=== PATIENT | female | born 1995 | race Caucasian/White ===

== ENCOUNTER 2022-08-20 16:57 | Emergency (ER) | payer MEDICAID ==
[~2022-08-20] VITALS: Ht 154.9 cm; Wt 58.5 kg
[2022-08-20 16:57] VITALS: BP_SYST 113
--- NOTE | 2022-08-20 16:57 | NUR ---
Patient triaged and placed in waiting room. VSS and patient appears in no acute distress at this time. Accompanied by SELF, awaiting available bed, and MD notified of need for MSE.
--- NOTE | 2022-08-20 17:09 | NUR ---
PT STATES THAT SHE IS APPROX 4 WEEKS , , AND WHILE WORKING STARTED HAVING SOB. STATES THROAT FEELS TIGHT, DRY MOUTH. PT DENIES HAVING ANY ANXIETY.
--- NOTE | 2022-08-20 18:10 | NUR ---
BROUGHT BACK TO BED #7 AND REPORT GIVEN TO NIKOLAS
--- NOTE | 2022-08-20 18:11 | NUR ---
Patient arrived to bed 7 for c/o feeling dehydrated, (again), and fast heart rate. Patient said this is her fifth and is having heavy breathing. Patient explained that when she lays down she "feels suffocated." Patient said that her mouth is so heavy. Patient 5 pregnancies, 4 living children. Patient had c-sections on all her pregnancies. No complications. Patient denies irregular bleeding. Patient LMP was June 11, 2022. Patient had high blood pressure during her last . Alert and oriented x4. Respiration even and unlabored. No shortness of breath. Able to walk and move around. Will continue to monitor.
--- NOTE | 2022-08-20 19:33 | NUR ---
Report given to overnight stocker RN for continuity of care. Patient stable condition. No distress. Still waiting on urine sample. Endorsed to overnight stocker RN.
[2022-08-20 19:36] LABS: BASOPHILS # (AUTO) 0.3 K/uL (0.0-0.2); EOSINOPHILS # (AUTO) 0.1 K/uL (0.0-0.4); HEMOGLOBIN 11.2 g/dL (12.0-16.0); LYMPHOCYTES # (AUTO) 0.8 K/uL (1.0-5.5); LYMPHOCYTES % (AUTO) 8.8 % (20.5-51.5); MEAN CORPUSCULAR HEMOGLOBIN 28 pg (27-31); MEAN CORPUSCULAR HGB CONC 33 % (32-36); MEAN CORPUSCULAR VOLUME 86 fL (79.0-98.0); MONOCYTES # (AUTO) 0.5 K/uL (0.0-1.0); MONOCYTES % (AUTO) 5.1 % (1.7-9.3); NEUTROPHILS # (AUTO) 7.7 K/uL (1.8-7.7); NEUTROPHILS % (AUTO) 82.1 % (40.0-70.0); PLATELET COUNT (AUTO) 227 K/uL (130-430); RED BLOOD CELL COUNT(AUTO) 3.97 MIL/uL (4.2-6.2); RED CELL DISTRIBUTION WIDTH 15.7 % (9.0-15.0); WHITE BLOOD COUNT (AUTO) 9.4 K/uL (4.8-10.8)
--- NOTE | 2022-08-20 19:39 | NUR ---
PT IS AA&OX4. AFEBRILE. NAD, DENIES PAIN. SATURATING 100% ON RA. AMBULATORY W/ STEADY GAIT. SAFE & HAZARD FREE ENVIRONMENT PROVIDED. WILL CON'T TO MONITOR.
[2022-08-20 19:57] LABS: ANION GAP 8 (5-15); CALCIUM 8.3 mg/dL (8.4-11.0); CHLORIDE 105 mmol/L (98-107); CREATININE 0.74 mg/dL (0.55-1.30); GLUCOSE 99 mg/dL (70-99); POTASSIUM 3.8 mmol/L (3.5-5.1); UREA NITROGEN, BLOOD 9 mg/dL (8-21)
[2022-08-20 20:23] LABS: ALANINE AMINOTRANSFERASE 35 U/L (12-78); ALBUMIN 3.3 g/dL (3.4-4.8); ASPARTATE AMINOTRANSFERASE 18 U/L (10-37); TOTAL BILIRUBIN 0.3 mg/dL (0.0-1.0)
[2022-08-20 20:24] LABS: GFR AFRICAN AMERICAN 119 mL/min (>90); HCG,QUANTITATIVE 7835 mIU/ML (0-6)
[2022-08-20 20:38] VITALS: BP_SYST 122
--- NOTE | 2022-08-20 20:39 | NUR ---
Patient given written and verbal discharge instructions and verbalizes understanding. ER MD discussed with patient the results and treatment provided. Patient in stable condition. ID arm band removed. PT IS AMBULATORY W/ STEADY GAIT SATURATING 100% ON RA. Patient educated on pain management and to follow up with PMD. Pain Scale 0/10. Opportunity for questions provided and answered. Medication side effect fact sheet provided.
== END 2022-08-20 20:38 | disposition home or self-care (01) ==
LOC: SED 16:57
DX: O99.511 Diseases of the respiratory system complicating pregnancy, first trimester (principal); O26.891 Other specified pregnancy related conditions, first trimester; Z3A.01 Less than 8 weeks gestation of pregnancy
CPT/HCPCS: 36415; 71045; 80053; 83880; 84484; 84702; 85025; 85379; 93005; 99285

== ENCOUNTER 2022-09-17 15:58 | Emergency (ER) | payer MEDICAID ==
[~2022-09-17] VITALS: Ht 157.5 cm; Wt 62.1 kg
[2022-09-17 16:00] VITALS: BP_SYST 97
--- NOTE | 2022-09-17 16:10 | NUR ---
Patient triaged and placed in waiting room. VSS and patient appears in no acute distress at this time. Accompanied by SPOUSE, awaiting available bed, and MD notified of need for MSE.
[2022-09-17 17:20] LABS: BASOPHILS # (AUTO) 0.1 K/uL (0.0-0.2); BASOPHILS % (AUTO) 0.8 % (0.0-2.0); EOSINOPHILS # (AUTO) 0.3 K/uL (0.0-0.4); EOSINOPHILS % (AUTO) 3.5 % (0.0-4.0); HEMATOCRIT 34.9 % (36-48); HEMOGLOBIN 11.7 g/dL (12.0-16.0); LYMPHOCYTES # (AUTO) 1.8 K/uL (1.0-5.5); LYMPHOCYTES % (AUTO) 23.6 % (20.5-51.5); MEAN CORPUSCULAR HEMOGLOBIN 29 pg (27-31); MEAN CORPUSCULAR HGB CONC 33 % (32-36); MEAN CORPUSCULAR VOLUME 86 fL (79.0-98.0); MONOCYTES # (AUTO) 0.4 K/uL (0.0-1.0); MONOCYTES % (AUTO) 5.1 % (1.7-9.3); NEUTROPHILS # (AUTO) 5.2 K/uL (1.8-7.7); PLATELET COUNT (AUTO) 244 K/uL (130-430); RED BLOOD CELL COUNT(AUTO) 4.06 MIL/uL (4.2-6.2); RED CELL DISTRIBUTION WIDTH 14.9 % (9.0-15.0); WHITE BLOOD COUNT (AUTO) 7.8 K/uL (4.8-10.8)
[2022-09-17 17:33] LABS: CALCIUM 8.7 mg/dL (8.4-11.0); CREATININE 0.62 mg/dL (0.55-1.30)
[2022-09-17 18:03] LABS: ALBUMIN 3.5 g/dL (3.4-4.8); TOTAL BILIRUBIN 0.2 mg/dL (0.0-1.0)
--- NOTE | 2022-09-17 19:00 | NUR ---
Pt brought by self ,A&Ox4, pt presents to ER with vaginal bleed, states she is 7 weeks , skin pink and warm, cap refill <3 VSS, respirations even and unlabored, will cont to monitor.
--- NOTE | 2022-09-17 19:04 | NUR ---
SEEN AND EVALUATED BY DR DALEY
[2022-09-17 19:34] LABS: BILIRUBIN,URINE NEGATIVE (NEGATIVE); BLOOD, URINE 3+ (NEGATIVE); CLARITY/URINE CLEAR (CLEAR); COLOR,URINE YELLOW (YELLOW); GLUCOSE,URINE NEGATIVE (NEGATIVE); KETONES,URINE NEGATIVE (NEGATIVE); LEUKOCYTE ESTERASE ,URINE NEGATIVE (NEGATIVE); NITRITE, URINE NEGATIVE (NEGATIVE); PH,URINE 6.5 (5.0-8.0); PROTEIN URINE NEGATIVE (NEGATIVE); UROBILINOGEN,URINE 0.2 (0.2-1.0)
[2022-09-17 20:37] LABS: WBC,URINE 0-3 /HPF (0-3)
[2022-09-17 20:38] LABS: BACTERIA,URINE MODERATE /HPF (None Seen); MUCUS,URINE 1+ /LPF (None Seen)
[2022-09-17] MEDS ORDERED: CEPH-548 PO (20:56)
--- NOTE | 2022-09-17 21:00 | NUR ---
Patient given verbal discharge instructions and verbalizes understanding.Pt left without written instructions, ER MD discussed with patient the results and treatment provided. Patient in stable condition. ID arm band removed. Rx of Cephalexin given. Patient educated on pain management and to follow up with PMD. Pain Scale 0/10 Opportunity for questions provided and answered. Medication side effect fact sheet provided.
[2022-09-17 21:07] VITALS: BP_SYST 97
== END 2022-09-17 21:00 | disposition home or self-care (01) ==
LOC: SED 15:58
DX: O20.0 Threatened abortion (principal); O23.41 Unspecified infection of urinary tract in pregnancy, first trimester; N39.0 Urinary tract infection, site not specified; Z3A.01 Less than 8 weeks gestation of pregnancy; Z79.899 Other long term (current) drug therapy
CPT/HCPCS: 36415; 76801; 76817; 80053; 81000; 81025; 84702; 85025; 86870; 86886; 86900; 86901; 99284